=== PATIENT | male | born 1945 | race Caucasian/White ===

== ENCOUNTER 2017-10-02 15:41 | Inpatient (IN) | payer MEDICARE, OTHER ==
[~2017-10-02] VITALS: Ht 193 cm; Wt 78.4 kg
[2017-10-02] MEDS ORDERED: SODIUM CHLORIDE FLUSH 10ML SYR IVF ONE (16:00)
[2017-10-02] MEDS ORDERED: CARV12.52 PO (16:00)
[2017-10-02 16:25] LABS: MEAN CORPUSCULAR HEMOGLOBIN 32.3 pg (27.5-34.5); MEAN CORPUSCULAR VOLUME 94.9 fL (81-97); MEAN PLATELET VOLUME 9.2 fL (7.4-10.4); PLATELET COUNT 158 x10^3/uL (130-400); RED BLOOD COUNT 3.15 x10^6/uL (4.38-5.82); RED CELL DISTRIBUTION WIDTH 15.7 % (9.4-14.8)
[2017-10-02] MEDS ORDERED: PLEASE ENTER ALLERGIES MC SCH ×2 (16:30→17:00)
[2017-10-02 16:34] LABS: ANION GAP 12 mmol/L (5-15); CALCIUM 8.8 mg/dL (8.5-10.1); CHLORIDE 101 mmol/L (98-107); CREATININE 6.56 mg/dL (0.7-1.3)
[2017-10-02 16:38] LABS: TROPONIN I 0.231 ng/mL (0.000-0.045)
[2017-10-02 16:50] LABS: CREATINE KINASE, TOTAL 2398 U/L (39-308)
[2017-10-02 16:57] LABS: MD YES
[2017-10-02 16:59] LABS: BAND#(MANUAL) 2.58 x10^3/uL; BANDS%(MANUAL) 16 % (0-7); LYMPH#(MANUAL) 1.13 x10^3/uL (1-3.4); LYMPHS% (MANUAL) 7 % (22-44); MONOS#(MANUAL) 1.13 x10^3/uL (0.3-2.7); MONOS% (MANUAL) 7 % (2-9); SEG#(MANUAL) 11.27 x10^3/uL (1.8-6.8); SEGS% (MANUAL) 70 % (42-75)
[2017-10-02 17:00] LABS: <PLATELET ESTIMATE> ADEQUATE; <PLT MORPHOLOGY> NORMAL PLT MORPH; <RBC MORPHOLOGY> NORMAL
[2017-10-02] MEDS ORDERED: CEFTRIAXONE PMX 1GM/50ML 50 ML IV ONE (17:00)
[2017-10-02] MEDS ORDERED: AZITHROMYCIN 500 MG in SODIUM CHLORIDE 0.9% 250 ML IV ONE (17:00)
[2017-10-02] MEDS ORDERED: CEFTRIAXONE PMX 1GM/50ML 50 ML ONE (17:13)
[2017-10-02] MEDS ORDERED: POLYETHYLENE GLYCOL 17 GM PACKET PO PRN (18:30)
[2017-10-02] MEDS ORDERED: BISACODYL 10 MG SUPP PR PRN (18:30)
[2017-10-02] MEDS ORDERED: ONDANSETRON ODT 4 MG PO PRN (18:30)
[2017-10-02] MEDS: CEFTRIAXONE PMX 1GM/50ML 50 ML IV SCH (18:30)
[2017-10-02] MEDS: AZITHROMYCIN 500 MG in SODIUM CHLORIDE 0.9% 250 ML IV SCH (18:30)
[2017-10-02] MEDS ORDERED: ACETAMINOPHEN 325 MG TABLET PO PRN (18:30)
[2017-10-02 18:54] LABS: HEMOGLOBIN A1C 6.7 % (4.2-6.3)
[2017-10-02 19:56] VITALS: BP 118/53
[2017-10-02] MEDS: SODIUM CHLORIDE FLUSH 10ML SYR IVF SCH (21:00)
[2017-10-02] MEDS ORDERED: CARVEDILOL 12.5 MG TABLET PO SCH (21:00)
[2017-10-02 21:03] LABS: TROPONIN I 0.235 ng/mL (0.000-0.045)
[2017-10-02 23:03] VITALS: BP 111/53
[2017-10-02] MEDS: HEPARIN 5,000 UNITS/ML, 1ML SQ SCH (23:04)
[2017-10-03 02:10] VITALS: BP 129/59
[2017-10-03 05:28] LABS: BASOPHILS # (AUTO) 0.01 x10^3/uL (0-0.1); BASOPHILS % (AUTO) 0 % (0-1); EOSINOPHILS # (AUTO) 0.04 x10^3/uL (0-0.4); EOSINOPHILS % (AUTO) 0 % (1-7); LYMPHOCYTES # (AUTO) 0.85 x10^3/uL (1-3.4); LYMPHOCYTES % (AUTO) 7 % (22-44); MD NO; MEAN CORPUSCULAR HEMOGLOBIN 32.1 pg (27.5-34.5); MEAN CORPUSCULAR HGB CONC 33.7 g/dL (33.2-36.2); MEAN CORPUSCULAR VOLUME 95.4 fL (81-97); MEAN PLATELET VOLUME 9.5 fL (7.4-10.4); MONOCYTES # (AUTO) 0.77 x10^3/uL (0.2-0.8); MONOCYTES % (AUTO) 6 % (2-9); NEUTROPHILS # (AUTO) 11.53 x10^3/uL (1.8-6.8); NEUTROPHILS % (AUTO) 87 % (42-75); PLATELET COUNT 153 x10^3/uL (130-400); RED BLOOD COUNT 3.14 x10^6/uL (4.38-5.82); RED CELL DISTRIBUTION WIDTH 15.3 % (9.4-14.8)
[2017-10-03 05:29] LABS: CHLORIDE 103 mmol/L (98-107)
[2017-10-03 05:44] LABS: ALANINE AMINOTRANSFERASE 58 U/L (12-78); ALKALINE PHOSPHATASE 150 U/L (45-117); ANION GAP 14 mmol/L (5-15); BILIRUBIN,TOTAL 0.6 mg/dL (0.2-1.0); CALCIUM 8.8 mg/dL (8.5-10.1); TOTAL PROTEIN 6.9 g/dL (6.4-8.2); TROPONIN I 0.252 ng/mL (0.000-0.045)
[2017-10-03 06:06] LABS: CREATINE KINASE, TOTAL 2768 U/L (39-308)
[2017-10-03] MEDS: HEPARIN 5,000 UNITS/ML, 1ML SQ SCH ×2 (06:14→16:33)
[2017-10-03 07:50] VITALS: BP 102/56
[2017-10-03] MEDS ORDERED: SODIUM BICARBONATE 8.4% 75 MEQ in DEXTROSE 5% 1,000 ML IV SCH (09:00)
[2017-10-03] MEDS: SENNA/DOCUSATE TABLET PO SCH (09:46)
[2017-10-03] MEDS: SODIUM CHLORIDE FLUSH 10ML SYR IVF SCH ×2 (09:46→21:00)
[2017-10-03 14:12] VITALS: BP 106/42
[2017-10-03] MEDS: CEFTRIAXONE PMX 1GM/50ML 50 ML IV SCH (16:54)
[2017-10-03] MEDS: AZITHROMYCIN 500 MG in SODIUM CHLORIDE 0.9% 250 ML IV SCH (18:23)
[2017-10-03 19:57] VITALS: BP 127/62
[2017-10-03 20:54] VITALS: BP 120/58
[2017-10-03] MEDS: CARVEDILOL 6.25 MG TABLET PO SCH (21:00)
[2017-10-04 03:16] VITALS: BP 117/61
[2017-10-04 05:31] LABS: BASOPHILS # (AUTO) 0.02 x10^3/uL (0-0.1); BASOPHILS % (AUTO) 0 % (0-1); EOSINOPHILS # (AUTO) 0.21 x10^3/uL (0-0.4); EOSINOPHILS % (AUTO) 2 % (1-7); LYMPHOCYTES # (AUTO) 1.37 x10^3/uL (1-3.4); LYMPHOCYTES % (AUTO) 16 % (22-44); MD NO; MEAN CORPUSCULAR HEMOGLOBIN 32.3 pg (27.5-34.5); MEAN CORPUSCULAR HGB CONC 34.1 g/dL (33.2-36.2); MEAN CORPUSCULAR VOLUME 94.8 fL (81-97); MEAN PLATELET VOLUME 9.3 fL (7.4-10.4); MONOCYTES % (AUTO) 14 % (2-9); NEUTROPHILS # (AUTO) 6.06 x10^3/uL (1.8-6.8); NEUTROPHILS % (AUTO) 68 % (42-75); PLATELET COUNT 153 x10^3/uL (130-400); RED BLOOD COUNT 3.09 x10^6/uL (4.38-5.82)
[2017-10-04 05:36] LABS: ALBUMIN 2.8 g/dL (3.4-5.0); ANION GAP 11 mmol/L (5-15); CHLORIDE 100 mmol/L (98-107)
[2017-10-04 06:00] LABS: ALANINE AMINOTRANSFERASE 72 U/L (12-78); ALKALINE PHOSPHATASE 151 U/L (45-117); BILIRUBIN,TOTAL 0.6 mg/dL (0.2-1.0); CREATINE KINASE, TOTAL 2178 U/L (39-308); CREATININE 5.83 mg/dL (0.7-1.3); TOTAL PROTEIN 6.6 g/dL (6.4-8.2)
[2017-10-04] MEDS: HEPARIN 5,000 UNITS/ML, 1ML SQ SCH ×3 (08:01→16:00)
[2017-10-04] MEDS: SENNA/DOCUSATE TABLET PO SCH (08:01)
[2017-10-04] MEDS: CARVEDILOL 6.25 MG TABLET PO SCH (08:01)
[2017-10-04] MEDS: SODIUM CHLORIDE FLUSH 10ML SYR IVF SCH (08:01)
[2017-10-04 08:40] VITALS: BP 123/85
[2017-10-04 12:28] VITALS: BP_SYST 101; BP_SYST 98; BP_DIAS 43; BP_DIAS 54
[2017-10-04] MEDS ORDERED: LEVO750T26 PO (14:04)
== END 2017-10-04 17:23 | disposition home or self-care (01) | DRG 871 ==
LOC: ED 17:31 → EDIP 17:32 → ED 17:54 → 4EST 19:28
PROVIDERS: ADMIT Emergency Medicine; ATTEND Emergency Medicine
PROC: 5A1D70Z Performance of Urinary Filtration, Intermittent, Less than 6 Hours Per Day (ICD-10-PCS; principal; 2017-10-02)
PROC: 5A1D70Z Performance of Urinary Filtration, Intermittent, Less than 6 Hours Per Day (ICD-10-PCS; 2017-10-03)
PROC: 5A1D70Z Performance of Urinary Filtration, Intermittent, Less than 6 Hours Per Day (ICD-10-PCS; 2017-10-04)
DX: A41.9 Sepsis, unspecified organism (principal); J18.9 Pneumonia, unspecified organism; J96.01 Acute respiratory failure with hypoxia; I13.2 Hypertensive heart and chronic kidney disease with heart failure and with stage 5 chronic kidney disease, or end stage renal disease; E44.0 Moderate protein-calorie malnutrition; R53.2 Functional quadriplegia; E11.22 Type 2 diabetes mellitus with diabetic chronic kidney disease; I50.9 Heart failure, unspecified; N18.6 End stage renal disease; D63.1 Anemia in chronic kidney disease; S20.212A Contusion of left front wall of thorax, initial encounter; J44.0 Chronic obstructive pulmonary disease with (acute) lower respiratory infection; T79.6XXA Traumatic ischemia of muscle, initial encounter; M25.572 Pain in left ankle and joints of left foot; F17.210 Nicotine dependence, cigarettes, uncomplicated; W18.39XA Other fall on same level, initial encounter; Z68.21 Body mass index [BMI] 21.0-21.9, adult; Z82.49 Family history of ischemic heart disease and other diseases of the circulatory system; Z83.3 Family history of diabetes mellitus; Z86.73 Personal history of transient ischemic attack (TIA), and cerebral infarction without residual deficits; Z99.2 Dependence on renal dialysis; Z99.81 Dependence on supplemental oxygen
CPT/HCPCS: 36415; 71045; 80048; 80053; 82040; 82550; 83036; 83605; 83735; 83880; 84100; 84484; 85025; 86704; 86706; 87040; 87340; 93005; 96365; 96375; 99285; J0456; J0696; J1644; J7070; J7050